=== PATIENT | male | born 1995 | race Caucasian/White ===

== ENCOUNTER 2021-04-14 08:35 | Emergency (ER) | payer OTHER ==
[~2021-04-14] VITALS: Ht 185.4 cm; Wt 99.8 kg
[2021-04-14] MEDS ORDERED: LIDOcaine 1% 30ml preserv. free vial IJ ONE (09:15)
[2021-04-14] MEDS ORDERED: HYDROcodone/acetaminophen 10/325mg tab PO ONE (09:15)
[2021-04-14] MEDS ORDERED: ketorolac trometh inj. 60 MG/2 ML VIAL IM ONE (09:15)
[2021-04-14] MEDS ORDERED: iohexol 300mg/ml 100ml inj. ONE (10:05)
--- NOTE | 2021-04-14 10:22 | NUR ---
BACK FROM CT
[2021-04-14] MEDS ORDERED: HYDR-3972 PO (11:20)
[2021-04-14 11:37] VITALS: BP 132/61
== END 2021-04-14 11:46 | disposition home or self-care (01) ==
LOC: ER 08:36
DX: S52.572A Other intraarticular fracture of lower end of left radius, initial encounter for closed fracture (principal); S52.615A Nondisplaced fracture of left ulna styloid process, initial encounter for closed fracture; S00.81XA Abrasion of other part of head, initial encounter; R10.13 Epigastric pain; R55 Syncope and collapse; M25.532 Pain in left wrist; R42 Dizziness and giddiness; W13.2XXA Fall from, out of or through roof, initial encounter; Y93.89 Activity, other specified; Y92.89 Other specified places as the place of occurrence of the external cause; Y99.8 Other external cause status
CPT/HCPCS: 25605; 71260; 73090; 73100; 73110; 74177; 96372; 99285; J1885; Q9967